=== PATIENT | male | born 1965 | race Caucasian/White ===

== ENCOUNTER 2021-07-28 19:42 | Emergency (ER) | payer BC, OTHER ==
--- NOTE | 2021-07-28 22:58 | XR ---
EXAMINATION TYPE: XR KUB DATE OF EXAM: 07/28/2021 COMPARISON: NONE HISTORY: Decreased urine output. Abdominal pain. TECHNIQUE: 2 views upright FINDINGS: There is no sign of intestinal obstruction or pneumoperitoneum. Fecal pattern is normal. Josseline ng bases are clear. There are no pathologic calcifications over the kidneys. IMPRESSION: Nonacute abdomen.
--- NOTE | 2021-07-29 00:44 | ED ---
Male Urogenital HPI - General Chief complaint: Urogenital Stated complaint: Possible Kidney Stones Time Seen by Provider: 07/28/21 23:51 Source: patient Mode of arrival: ambulatory Limitations: no limitations - History of Present Illness Initial comments: This patient is a 55-year-old man who presents with complaint that "I can't pee." states that he had been working not able urinate and then he noticed that he was certain develop suprapubic pain and now was not able to pass urine when he attempts. He states that for maybe the day prior he was not having his normal urine stream. No fever or chills. No dysuria. No back or flank pain. No discharge. MD Complaint: other (Urinary retention) -: hour(s) Location: abdomen Radiation: none Severity: moderate Quality: other (Pressure) Consistency: constant Improves with: none Worsens with: none Reports: urinary retention - Related Data Allergies Allergy/AdvReac Type Severity Reaction Status Date / Time No Known Allergies Allergy Verified 07/28/21 22:27 Review of Systems ROS Statement: Those systems with pertinent positive or pertinent negative responses have been documented in the HPI. ROS Other: All systems not noted in ROS Statement are negative. Constitutional: Denies: fever, chills Respiratory: Denies: cough, dyspnea Cardiovascular: Denies: chest pain, palpitations Gastrointestinal: Reports: abdominal pain. Denies: nausea, vomiting, diarrhea, constipation Genitourinary: Reports: as per HPI, other (Urinary retention). Denies: dysuria, testicular pain, testicular mass Musculoskeletal: Denies: back pain Skin: Denies: rash Neurological: Denies: headache, weakness Past Medical History Past Medical History: No Reported History History of Any Multi-Drug Resistant Organisms: None Reported Past Surgical History: No Surgical Hx Reported Smoking Status: Current every day smoker Past Alcohol Use History: None Reported Past Drug Use History: None Reported General Exam Limitations: no limitations General appearance: alert, in no apparent distress Head exam: Present: atraumatic, normocephalic Eye exam: Present: normal appearance. Absent: scleral icterus, conjunctival injection Respiratory exam: Present: normal lung sounds bilaterally. Absent: respiratory distress, wheezes, rales, rhonchi, stridor Cardiovascular Exam: Present: regular rate, normal rhythm, normal heart sounds. Absent: systolic murmur, diastolic murmur, rubs, gallop GI/Abdominal exam: Present: soft, guarding, other (Suprapubic fullness consistent with bladder). Absent: distended, rebound, rigid Extremities exam: Present: normal inspection, normal capillary refill. Absent: pedal edema, calf tenderness Back exam: Present: normal inspection. Absent: CVA tenderness (R), CVA tenderness (L) Neurological exam: Present: alert Skin exam: Present: warm, dry, intact, normal color. Absent: rash Course Vital Signs 07/28/21 21:07 Temperature 98.8 F Pulse Rate 108 H Respiratory 19 Rate Blood Pressure 174/106 O2 Sat by Pulse 96 Oximetry Medical Decision Making - Lab Data Lab Results 07/29/21 Range/Units 01:22 Urine Color Yellow Urine Appearance Cloudy (Clear) Urine pH 6.5 (5.0-8.0) Ur Specific [place] 1.024 (1.001-1.035) Urine Protein Trace H (Negative) Urine Glucose (UA) Negative (Negative) Urine Ketones Negative (Negative) Urine Blood Trace H (Negative) Urine Nitrite Negative (Negative) Urine Bilirubin Negative (Negative) Urine Urobilinogen 2.0 (<2.0) mg/dL Ur Leukocyte Esterase Negative (Negative) Urine RBC 8 H (0-5) /hpf Urine WBC 3 (0-5) /hpf Amorphous Sediment Few H (None) /hpf Urine Bacteria Rare H (None) /hpf Hyaline Casts 1 (0-2) /lpf Urine Mucus Rare H (None) /hpf Disposition Clinical Impression: Urinary retention Disposition: HOME SELF-CARE Condition: Good Instructions (If sedation given, give patient instructions): Urinary Retention in Men (ED) Is patient prescribed a controlled substance at d/c from ED?: No Referrals: None,Stated [Primary Care Provider] - 1-2 days Levi Dominguez MD [STAFF PHYSICIAN] - 1-2 days
[2021-07-29 01:34] LABS: Amorphous Sediment,Urine Few /hpf; Appearance,Urine Cloudy (Clear); Bacteria,Urine Rare /hpf; Bilirubin,Urine Negative (Negative); Blood,Urine Trace (Negative); Color,Urine Yellow; Glucose,Urine (UA) Negative (Negative); Hyaline Casts,Urine 1 /lpf (0-2); Ketones,Urine Negative (Negative); Leukocyte Esterase,Urine Negative (Negative); Mucus,Urine Rare /hpf; Nitrite,Urine Negative (Negative); PH, Urine 6.5 (5.0-8.0); Protein,Urine Trace (Negative); RBC,Urine 8 /hpf (0-5); Specific Gravity,Urine 1.024 (1.001-1.035); WBC,Urine 3 /hpf (0-5)
[2021-07-29 02:49] VITALS: BP 152/91; PULSE 89; RESP 18; TEMP 98.7
== END 2021-07-29 02:44 | disposition home or self-care (01) ==
LOC: EC 19:42
DX: R33.9 Retention of urine, unspecified (principal); F17.200 Nicotine dependence, unspecified, uncomplicated
CPT/HCPCS: 12011; 74018; 81001; 99283

== ENCOUNTER 2022-05-08 08:26 | Emergency (ER) | payer OTHER ==
[2022-05-08 08:35] VITALS: BP 156/100; PULSE 100; RESP 20; TEMP 97.8
--- NOTE | 2022-05-08 09:02 | ED ---
General Adult HPI - General Chief complaint: Abdominal Pain Stated complaint: trouble urinating Time Seen by Provider: 05/08/22 08:37 Source: patient, RN notes reviewed Mode of arrival: ambulatory Limitations: no limitations - History of Present Illness Initial comments: Patient is a pleasant 56-year-old male presenting to the emergency department with difficulty with urination. Patient has had some mild difficulty, worsens around 3 AM. Patient was able to urinate small amounts twice today. Patient does have history of similar symptoms previously associated with prostate problems and did need Martini catheter. Patient is on medication for his prostate and does see a urologist. Patient does have suprapubic fullness. No fever. - Related Data Allergies Allergy/AdvReac Type Severity Reaction Status Date / Time No Known Allergies Allergy Verified 05/08/22 08:35 Review of Systems ROS Statement: Those systems with pertinent positive or pertinent negative responses have been documented in the HPI. ROS Other: All systems not noted in ROS Statement are negative. Constitutional: Denies: fever Eyes: Denies: eye pain ENT: Denies: ear pain Respiratory: Denies: cough Cardiovascular: Denies: chest pain Endocrine: Denies: fatigue Gastrointestinal: Reports: as per HPI Genitourinary: Reports: as per HPI, urgency Musculoskeletal: Denies: back pain Skin: Denies: rash Neurological: Denies: weakness Past Medical History Past Medical History: No Reported History History of Any Multi-Drug Resistant Organisms: None Reported Past Surgical History: No Surgical Hx Reported Past Psychological History: No Psychological Hx Reported Smoking Status: Current every day smoker Past Alcohol Use History: Occasional Past Drug Use History: None Reported General Exam Limitations: no limitations General appearance: alert, in no apparent distress Head exam: Present: normocephalic Eye exam: Present: normal appearance Neck exam: Present: normal inspection Respiratory exam: Present: normal lung sounds bilaterally Cardiovascular Exam: Present: regular rate, normal rhythm GI/Abdominal exam: Present: soft, tenderness (Mild discomfort suprapubic) Extremities exam: Present: normal inspection Neurological exam: Present: alert Psychiatric exam: Present: normal affect, normal mood Skin exam: Present: normal color Course Vital Signs 05/08/22 08:33 Temperature 97.8 F Pulse Rate 100 Respiratory 20 Rate Blood Pressure 156/100 O2 Sat by Pulse 97 Oximetry Medical Decision Making - Medical Decision Making Patient feeling much better following catheter placement. Disposition Clinical Impression: Urinary retention Disposition: HOME SELF-CARE Condition: Stable Instructions (If sedation given, give patient instructions): Urinary Retention in Men (ED) Additional Instructions: Please do follow-up with your primary care physician as well as your urologist this week. Return for increased pain, fever, worsening or changing symptoms or other concerns. Continue your prostate medication. Is patient prescribed a controlled substance at d/c from ED?: No Referrals: Keegan Simpson MD [STAFF PHYSICIAN] - 1-2 days Levi Sue MD [STAFF PHYSICIAN] - 1-2 days Time of Disposition: 09:25
== END 2022-05-08 10:00 | disposition home or self-care (01) ==
LOC: EC 08:26
DX: R33.9 Retention of urine, unspecified (principal); F17.200 Nicotine dependence, unspecified, uncomplicated; Z20.822 Contact with and (suspected) exposure to COVID-19
CPT/HCPCS: 99283

== ENCOUNTER → 2022-06-17 | Outpatient (CLI) | payer OTHER | END | disposition home or self-care (01) | LOC: LABWHC1 08:16 | PROVIDERS: ATTEND Urology | DX: N40.1 Benign prostatic hyperplasia with lower urinary tract symptoms (principal); N13.8 Other obstructive and reflux uropathy | CPT/HCPCS: 36415; 84153 ==

== ENCOUNTER → 2022-07-02 | Outpatient (CLI) | payer OTHER | END | disposition home or self-care (01) | LOC: LABWHC1 10:43 | PROVIDERS: ATTEND Urology | DX: E74.818 Other disorders of glucose transport (principal) | CPT/HCPCS: 36415; 82947 ==